=== PATIENT | male | born 1990 | race Caucasian/White ===

== ENCOUNTER 2023-02-11 21:31 | Emergency (ER) | payer OTHER ==
[~2023-02-11] VITALS: Ht 172.7 cm; Wt 54.4 kg
[2023-02-11 21:55] VITALS: BP_SYST 115
--- NOTE | 2023-02-11 22:00 | NUR ---
PT BIB SELF FROM HOME, AMBULATED TO BED 7. PT A&Ox4, ABLE TO MAKE NEEDS KNOWN. PT C/O PAIN AND NUMBNESS TO PENIS x3 WEEKS. PT RATES PAIN 6/10. PT STATES HE HAD SEX WITH A NEW PARTNER 3 WEEKS AGO, DID NOT USE PROTECTION AND IS NOT SURE IF HIS PENIS PENETRATED. PT STATES UPON PENETRATION HE FELT LIKE HIS PENIS "BENT" AND IMMEDIATELY PULLED OUT. PT STATES HE FELT A "BURNING" SENSATION DURING INTERCOURSE. PT DENIES N/V, FEVER AND CHILLS. PT DENIES SOB AND CHEST PAIN. PT STATES HE TOOK 500MG TYLENOL AT 1500. SAFETY MEASURES IN PLACE.
--- NOTE | 2023-02-11 22:02 | NUR ---
Patient to ER bed 07 to gown for evaluation. Side rails up. Report given to ELY CAMPBELL.
--- NOTE | 2023-02-11 22:08 | NUR ---
ER Dr. MOJICA at bedside examining patient.
[2023-02-11 23:01] LABS: BASOPHILS # (AUTO) 0.1 K/uL (0.0-0.2); BASOPHILS % (AUTO) 1.5 % (0.0-2.0); EOSINOPHILS # (AUTO) 0.3 K/uL (0.0-0.4); EOSINOPHILS % (AUTO) 4.2 % (0.0-4.0); HEMATOCRIT 38.2 % (36-54); LYMPHOCYTES # (AUTO) 2.2 K/uL (1.0-5.5); LYMPHOCYTES % (AUTO) 34.8 % (20.5-51.5); MEAN CORPUSCULAR HEMOGLOBIN 31 pg (27-31); MEAN CORPUSCULAR HGB CONC 34 % (32-36); MEAN CORPUSCULAR VOLUME 90 fL (79.0-98.0); MONOCYTES # (AUTO) 0.5 K/uL (0.0-1.0); MONOCYTES % (AUTO) 7.9 % (1.7-9.3); NEUTROPHILS # (AUTO) 3.2 K/uL (1.8-7.7); NEUTROPHILS % (AUTO) 51.6 % (40.0-70.0); PLATELET COUNT (AUTO) 236 K/uL (130-430); RED BLOOD CELL COUNT(AUTO) 4.24 MIL/uL (4.2-6.2); RED CELL DISTRIBUTION WIDTH 12.9 % (9.0-15.0); WHITE BLOOD COUNT (AUTO) 6.2 K/uL (4.8-10.8)
[2023-02-11 23:13] LABS: ALBUMIN 3.7 g/dL (3.4-4.8); CALCIUM 7.8 mg/dL (8.4-11.0); CREATININE 0.77 mg/dL (0.55-1.30); TOTAL BILIRUBIN 0.5 mg/dL (0.0-1.0)
[2023-02-11 23:23] LABS: BILIRUBIN,URINE NEGATIVE (NEGATIVE); BLOOD, URINE NEGATIVE (NEGATIVE); CLARITY/URINE CLEAR (CLEAR); COLOR,URINE YELLOW (YELLOW); GLUCOSE,URINE NEGATIVE (NEGATIVE); KETONES,URINE NEGATIVE (NEGATIVE); LEUKOCYTE ESTERASE ,URINE NEGATIVE (NEGATIVE); NITRITE, URINE NEGATIVE (NEGATIVE); PROTEIN URINE NEGATIVE (NEGATIVE)
[2023-02-12] MEDS ORDERED: NAPR-686 PO (00:49)
[2023-02-12 01:00] VITALS: BP_SYST 127
[2023-02-12] MEDS ORDERED: IBUPROFEN 600 MG TABLET PO ONE (01:00)
--- NOTE | 2023-02-12 01:00 | NUR ---
Patient given written and verbal discharge instructions and verbalizes understanding. ER DR. MOJICA discussed with patient the results and treatment provided. Patient in stable condition. ID arm band removed. Rx of NAPROXEN given. Patient educated on pain management and to follow up with PMD. Pain Scale 0/10. Opportunity for questions provided and answered. Medication side effect fact sheet provided.
== END 2023-02-12 01:00 | disposition home or self-care (01) ==
LOC: SED 21:31
DX: S39.94XA Unspecified injury of external genitals, initial encounter (principal); Z79.899 Other long term (current) drug therapy; X58.XXXA Exposure to other specified factors, initial encounter; Y93.89 Activity, other specified; Y92.89 Other specified places as the place of occurrence of the external cause; Y99.8 Other external cause status
CPT/HCPCS: 36415; 80053; 81003; 83690; 85025; 99283